=== PATIENT | male | born 2000 | race Hispanic/Latino ===

== ENCOUNTER 2021-08-02 17:41 | Emergency (ER) | payer SELFPAY ==
[~2021-08-02] VITALS: Ht 175.3 cm; Wt 59.0 kg
[2021-08-02 18:03] LABS: BASOPHILS % (AUTO) 0.1 % (0.0-5.0); EOSINOPHILS % (AUTO) 1.1 % (0.0-8.0); HEMATOCRIT 42.3 % (42-54); MEAN CORPUSCULAR HEMOGLOBIN 30.8 pg (27.0-33.0); MEAN CORPUSCULAR HGB CONC 33.8 g/dL (32.0-36.0); MEAN CORPUSCULAR VOLUME 91.2 fL (79-99); MONOCYTES % (AUTO) 7.4 % (3.0-13.0); NEUTROPHILS % (AUTO) 80.2 % (40.0-77.0); PLATELET COUNT (AUTO) 233 K/uL (130-400); RED BLOOD CELL COUNT(AUTO) 4.64 MIL/uL (4.50-6.20); RED CELL DISTRIBUTION WIDTH 12.6 % (11.0-15.5); WHITE BLOOD COUNT (AUTO) 8.1 K/uL (4.8-10.8)
[2021-08-02 18:17] VITALS: BP 107/60
[2021-08-02 18:18] LABS: CREATININE 0.8 mg/dL (0.5-1.5); POTASSIUM 3.5 mmol/L (3.5-5.1)
[2021-08-02 18:19] LABS: APPEARANCE,URINE Clear (CLEAR); BILIRUBIN,URINE Negative (NEGATIVE); COLOR,URINE Dark Yellow (YELLOW); GLUCOSE, URINE (UA) Negative (NEGATIVE); KETONES,URINE 15 mg/dL (NEGATIVE); LEUKOCYTE ESTERASE ,URINE Small (NEGATIVE); NITRATE,URINE Negative (NEGATIVE); OCCULT BLOOD,URINE Negative (NEGATIVE); PROTEIN,URINE Trace mg/dL (NEGATIVE)
[2021-08-02 18:22] LABS: ALBUMIN 4.2 g/dL (3.5-5.0); BILIRUBIN,TOTAL 1.5 mg/dL (0.2-1.0); TOTAL PROTEIN, SERUM 8.1 g/dL (6.0-8.3)
[2021-08-02 18:37] LABS: RBC,URINE 0-1 /HPF (0-1)
[2021-08-02 18:38] LABS: BACTERIA,URINE Rare /HPF (None Seen); MUCUS,URINE Few LPF (None Seen); SQUAMOUS EPITHELIAL CELL,UR Rare /HPF (0-2)
[2021-08-02] MEDS ORDERED: DICY20TA2 PO (20:01)
== END 2021-08-02 20:12 | disposition home or self-care (01) ==
LOC: EDH 17:41
DX: R10.13 Epigastric pain (principal)
CPT/HCPCS: 36415; 80053; 81001; 82150; 83690; 85025; 87088

== ENCOUNTER 2024-11-19 22:39 | Emergency (ER) | payer OTHER ==
[~2024-11-19] VITALS: Ht 175.3 cm; Wt 61.2 kg
[~2024-11-19 22:39] MED LIST: DICY20TA2 PO
[2024-11-19 22:48] VITALS: BP 118/70; PULSE 85; RESP 16; TEMP 99; O2SAT 98
[2024-11-19] MEDS ORDERED: PRED50TA2 PO (23:10)
[2024-11-19] MEDS ORDERED: AMOX-427 PO (23:10)
[2024-11-19] MEDS ORDERED: IBUP-2071 PO (23:11)
--- NOTE | 2024-11-19 23:11 | ERN ---
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 Patient is reporting tightness to his face. Patient states the pain has been unable to be controlled with ibuprofen. Patient denies fevers, nausea, vomiting diaphoresis, syncope, presyncope, productive cough Past Medical History: No Pertinent History Surgical History: None Review of System Dictation See HPI Initial Vital Sign VS Vital Signs Date Time Temp Pulse Resp B/P (MAP) Pulse Ox O2 Delivery O2 Flow Rate FiO2 11/19/24 22:40 99.0 89 18 119/71 97 0 11/19/24 22:48 Room Air* 21 Physical Exam Dictation Well-appearing, no acute distress, normal oropharynx, dental emily, no peritonsillar abscess, patent airway ED Course ED Course Vital Signs Date Time Temp Pulse Resp B/P (MAP) Pulse Ox O2 Delivery O2 Flow Rate FiO2 11/19/24 22:48 99.0 85 16 118/70 98 Room Air* 0 21 11/19/24 22:40 99.0 89 18 119/71 97 0 Medical Decision Making MDM ddx: Dental caries versus dental abscess versus peritonsillar abscess versus Asif's angina versus retroperitoneal abscess Patient's physical exam consistent with dental caries and dental infection. Patient states ibuprofen is not working. We will prescribe prescription strength ibuprofen. We will give steroids. We will give Augmentin. Constipation that he must follow up with dentist. Patient acknowledged, understood, DX & DISP Disposition: Discharge Departure Impression: Primary Impression: Pain, dental Condition: Stable Scripts Ibuprofen (Ibuprofen) 800 Mg Tablet 800 MG PO Q8H PRN for PAIN, #21 TAB 0 Refills Prov: AV COLBERT DO 11/19/24 Prednisone (Prednisone) 50 Mg Tablet 60 MG PO DAILY for 5 Days, #5 TAB 0 Refills Prov: AV COLBERT DO 11/19/24 Amoxicillin/Potassium Clav (Augmentin Xr 1,000-62.5 Tab) 1,000 Mg-62.5 Mg Tab.er.12h 875 TAB PO BID for 10 Days, #20 TAB 0 Refills with food Prov: AV COLBERT DO 11/19/24 Additional Instructions: Please follow up with dentist at next available appointment. Please return to the emergency department immediately if you develop fevers, nausea, vomiting, sweating, change in mental status, inability eat or drink, drooling Referrals: SELF,REFERRAL (PCP) Time of Disposition: 23:11 AV COLBERT DO Nov 19, 2024 23:11
== END 2024-11-19 23:14 ==
LOC: EDH 22:39
DX: K08.89 Other specified disorders of teeth and supporting structures (principal); Z79.899 Other long term (current) drug therapy
CPT/HCPCS: 99283